=== PATIENT | female | born 1985 | race Caucasian/White ===

== ENCOUNTER 2017-09-04 00:26 | Emergency (ER) | payer MEDICAID, SELFPAY ==
[2017-09-04 00:27] VITALS: BP 135/101; PULSE 83; RESP 16; TEMP 36.7; O2SAT 100; BMI 26.1
--- NOTE | 2017-09-04 00:58 | ED.DCSUM_ITS ---
- ER Visit Summary Date of Service: 09/04/17 Chief Complaint: Rash and sore throat History of Present Illness: The patient is a 32 F 2 day history rash started on abdomen has spread diffusely in spots. Sore throat yesterday. No changes in soaps or detergents. She does have a new puppy. No plant exposure. States chills and sweats. Mild nonproductive cough. Pain worse with swallowing. Has not taken any medications. Also states has a goiter that is being monitored. Physical Examination: General: Alert and oriented ?3, no acute distress HEENT: Normocephalic, atraumatic. Posterior pharyngeal erythema. No exudates. 1+ symmetric tonsils. Uvula midline. No trismus. Moist mucosa membranes Neck: supple, nontender. Small mass anterior neck midline. Nontender. Cardiovascular: Regular rate and rhythm, no murmurs Respiratory: Normal breath sounds, symmetric, no distress Abdomen: Soft, nontender, nondistended Extremities: Nontender, no edema, pulses intact ?4 Neuro: no focal neurological deficits. Skin: Diffuse scattered papules abdomen and bilateral arms. Patches in the groin region. There is a patch in the left palm region. No patches or lesions on the foot. Test Results: Rapid strep positive Emergency Department Course and Treatment: Patient nontoxic, vital signs stable. Rapid strep was positive. Patient was diffuse scattered papular rash. Rash started first prior to throat symptoms. Discussed could be viral syndrome with coxsackie's with the palm rash. However patient also strep positive currently. She denies any urinary symptoms. She will be treated Bicillin and Decadron. She will use Benadryl as needed. Discussed monitoring for urine symptoms for decreased output or hematuria or developing fevers to call her PCP or return for reevaluation. Patient understands and agrees with plan. Treatment Plan: [] Disposition: Discharge Impression: 1. Strep pharyngitis 2. Dermatitis This note was generated with [employer] dictation software. It may contain incorrect words, spelling, and punctuation that were not noted in review of the chart prior to signing ED Disposition - Plan for ED Patient: Disposition: Home or Assisted Living Chief Complaint: Sore Throat Diagnosis: Strep pharyngitis, Dermatitis Instructions: ED Strep Pharyngitis Conf, ED Dermatitis Non Specific Rash Referrals: Servando Fishman DO [Primary Care Provider] - 3-5 Days if not improving
[2017-09-04] MEDS: Ibuprofen 600 MG Tablet PO (01:10)
[2017-09-04] MEDS: Penicillin G Benzathine 1.2 MU/2 ML Syringe IM (02:07)
[2017-09-04 02:27] VITALS: BP 140/97; PULSE 85; RESP 17; O2SAT 98
[2017-09-04] MEDS: DiphenhydrAMINE 25 MG Capsule 50 MG PO (02:27)
--- NOTE | 2017-09-04 02:32 | ED.RN ---
PT GIVEN WRITTEN AND VERBAL DISCHARGE INSTRUCTIONS, AND BENADRYL HOME PACK. PT VERBALIZES UNDERSTANDING. PT INJECTION SITE CLEAR. DENIES ANY FURTHER QUESTIONS. AMBULATORY HOME BY SELF.
== END 2017-09-04 02:34 | disposition home or self-care (01) ==
PROVIDERS: Emergency Provider Emergency Medicine; Family Provider Student in an Organized Health Care Education/Training Program; PCP Student in an Organized Health Care Education/Training Program
DX: L30.9 Dermatitis, unspecified (principal); J02.0 Streptococcal pharyngitis; F32.9 Major depressive disorder, single episode, unspecified; F41.9 Anxiety disorder, unspecified; Z79.899 Other long term (current) drug therapy; Z72.0 Tobacco use
CPT/HCPCS: 87880; 96372; 99283

== ENCOUNTER → 2023-12-11 | Outpatient (CLI) | payer MEDICAID, SELFPAY ==
[2023-12-11 18:35] LABS: HIV - WCH Non-Reactive (Nonreactive); Hepatitis B Surface Antibody Reactive; Hepatitis B Surface Antigen Non-Reactive (Nonreactive); Hepatitis C Antibody Non-Reactive (Nonreactive); Syphilis Antibodies Non-reactive
[2023-12-13 08:10] LABS: Hepatitis B Core Ab Total Negative (Negative)
[2023-12-16 16:10] LABS: HPV APTIMA, High Risk Negative (Negative)
[2023-12-16 17:11] LABS: HPV Reflexed? YES, CHARGE PATIENT
== END | disposition home or self-care (01) ==
LOC: LABSPEC 15:58
PROVIDERS: PCP Student in an Organized Health Care Education/Training Program; Visit Provider Nurse Practitioner Family
DX: Z01.419 Encounter for gynecological examination (general) (routine) without abnormal findings (principal); Z11.3 Encounter for screening for infections with a predominantly sexual mode of transmission
CPT/HCPCS: 86703; 86704; 86706; 86780; 86803; 87340; 87624; 88175; G0145

== ENCOUNTER → 2023-12-23 | Outpatient (CLI) | payer MEDICAID, SELFPAY ==
--- NOTE | 2023-12-23 13:57 | BI_ITS ---
MAMMOGRAPHY - BILATERAL SCREENING REASON FOR EXAM: Female, 38 years old. Routine annual screening examination. PERTINENT HISTORY: Aunt with breast cancer. TECHNIQUE: Digital bilateral breast dorothy (3D mammographic acquisition) in the CC and MLO projections. 2-D mediolateral oblique (MLO) and craniocaudad (CC) views of both breasts were obtained. CAD: Full Field Digital Mammography with Computer Added Detection was performed. COMPARISON: None. Baseline examination. FINDINGS: Breast Composition: The breasts are almost entirely fatty. There are no dominant masses or suspicious calcifications. No other significant abnormalities are identified. BI/SCRN MAMM (CAD)W/DOROTHY BILAT IMPRESSION: Negative screening mammogram. Yearly followup mammogram recommended. (A) ASSESSMENT CATEGORY: BIRADS Category 1: Negative. A letter regarding these results will be sent to the patient by the facility within 30 days. Approximately 10% of breast cancers are not detected by mammography. A normal mammogram should not delay biopsy of a clinically suspicious abnormality. [id number] Electronically Signed: Lito Castaneda MD at 14:44 EDT ,
== END | disposition home or self-care (01) ==
PROVIDERS: PCP Student in an Organized Health Care Education/Training Program; Referring Provider Nurse Practitioner Family; Visit Provider Nurse Practitioner Family
DX: Z12.31 Encounter for screening mammogram for malignant neoplasm of breast (principal)
CPT/HCPCS: 77063; 77067

== ENCOUNTER 2023-12-25 15:38 | Emergency (ER) | payer MEDICAID, SELFPAY ==
[2023-12-25 15:45] VITALS: BP 117/77; PULSE 89; RESP 16; TEMP 36.1; O2SAT 99
--- NOTE | 2023-12-25 15:45 | EKG12_ITS ---
Test Reason : SOB Blood Pressure : / mmHG Vent. Rate : 092 BPM Atrial Rate : 092 BPM P-R Int : 152 ms QRS Dur : 066 ms QT Int : 354 ms P-R-T Axes : 037 020 069 degrees QTc Int : 437 ms Normal sinus rhythm Normal ECG Confirmed by SHON PROCTOR, OVIDIO ([id number]), rewrite editor LEE LATHAM ([id number]) on 12/31/2023 10:42:44 A M Referred By: CECELIA Confirmed By:OVIDIO MENENDEZ MD
--- NOTE | 2023-12-25 15:45 | RAD_ITS ---
STUDY: X-RAY CHEST REASON FOR EXAM: Female, 38 years old. chest pain TECHNIQUE: Single AP portable view of the chest. COMPARISON: 08/20/2012 FINDINGS: The lungs are clear and expanded. There is no demonstrated pleural abnormality. Normal size heart. Normal mediastinum and knvg. Normal visualized pulmonary arteries. Normal visualized aortic arch and descending thoracic aorta. Normal visualized thoracic spine. Normal visualized ribs, clavicles, and shoulders. There is no demonstrated abnormality of the visualized soft tissue structures of the upper abdomen. RAD/Chest 1 View (Portable) IMPRESSION: Normal x-ray examination of the chest. Electronically Signed: Jesus Davis MD at 16:13 EDT ,
[2023-12-25 15:48] VITALS: BMI 32.0
[2023-12-25 15:57] LABS: Absolute Lymphocyte Count 0.91 X10^3/uL (0.83-4.51); Absolute Neutrophil Count 9.5 X10^3/uL (2.0-7.7); Basophil# 0.05 X10^3/uL; Basophil% 0.5 % (0-1); Eosinophil# 0.01 X10^3/uL; Eosinophils% 0.1 % (0-5); Hematocrit 40.2 % (37-47); Hemoglobin 13.3 g/dL (12.0-15.0); Lymphocyte # 0.91 X10^3/ul (0.83-4.51); Lymphocyte % 8.3 % (19-41); Mean Corp Hgb Conc 33.1 g/dL (32-36); Mean Corpuscular Hgb 27.4 pg (27.0-32.0); Mean Corpuscular Volume 82.9 fL (81-99); Mean Platelet Vol. 9.2 fl (6.2-12.0); Monocyte# 0.31 X10^3/uL; Monocyte% 2.8 % (0-10); NRBC Flagged by Analyzer 0 % (0-5); Neutrophil # 9.53 X10^3/uL (2.7-7.7); Neutrophil % 87.4 % (47-70); Platelet Count 379 K/mm3 (150-450); RBC Distribution Width CV 12.4 % (11.6-14.6); RBC Distribution Width SD 37.3 fl (35.1-43.9); Red Blood Count 4.85 M/mm3 (4.2-5.4); White Blood Count 10.9 K/mm3 (4.4-11.0)
[2023-12-25 16:17] LABS: Anion Gap 5 (5-15); BUN 22 mg/dL (7-18); BUN/Creat Ratio 25.3 RATIO (10-20); Calcium,Total 9.2 mg/dL (8.5-10.1); Chloride 105 mmol/L (98-107); Creatinine, Serum 0.87 mg/dL (0.55-1.02); EST Glomerular Filtration Rate 77 mL/min (>60); Est Glom Filt Rate - Afr Amer 93 mL/min (>60); Glucose 121 mg/dL (74-106); Potassium 3.8 mmol/L (3.5-5.1); Sodium Level 137 mmol/L (136-145); Troponin-I HS (w/2H Reflex) < 3 pg/mL (3.0-54.0)
[2023-12-25 16:27] LABS: International Normalized Ratio 1.1
[2023-12-25 16:41] VITALS: BP 128/82; PULSE 88; RESP 10; TEMP 36.8; O2SAT 99
[2023-12-25 17:00] VITALS: BP 136/83; PULSE 88; RESP 13; O2SAT 98
--- NOTE | 2023-12-25 17:30 | EX.ED.DYSGE1 ---
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 According the patient she states that she was sitting in group therapy today when she developed chest pain. States that last night she had chest pain on the left side that resolved on its own and then today she noticed this was on the right side rated this a approximately 7 out of 10. She states that EMS was called to have her brought here for evaluation management and noted that her blood pressure was elevated. She states that she was given nitroglycerin and her pain completely resolved with this medication. Patient states that she does have a history of a leaking tricuspid valve and has not followed up on this recently. 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 Depression Anxiety Substance abuse Home Medications ?Medication ?Instructions ?Recorded ?Last Taken ?Type cholecalciferol (vitamin D3) 25 1,000 unit PO DAILY 03/27/14 Unknown History mcg (1,000 unit) capsule (Vitamin D3) duloxetine 60 mg capsule,delayed 60 mg PO DAILY 03/27/14 Unknown History release multivitamin with folic acid 400 1 tab PO DAILY 03/27/14 Unknown History mcg tablet (Thera) tramadol 50 mg tablet 50 mg PO Q6H PRN PRN Pain 09/17/15 Unknown History lorazepam 0.5 mg tablet 0.5 mg PO TID PRN PRN Anxiety 12/05/16 Unknown History Allergy/AdvReac Type Severity Reaction Status Date / Time No Known Allergies Allergy Verified 12/25/23 15:45 Surgical History History of appendectomy History of cholecystectomy Social History Smoking Status: Current every day smoker tobacco type: cigarettes ROS ROS ED ROS Narrative Constitutional: Complained of some lightheadedness denies any headaches, fevers, chills ENT: Denies changes with double vision blurry vision Cardiovascular: Complains of chest pain as noted above denies any palpitations Respiratory: Denies cough wheezing shortness of breath Abdominal: Denies any abdominal pain nausea vomiting diarrhea Genitourinary: Denies any painful ideation, hematuria, polyuria Neurological: Denies any numbness weakness, tingling Skin: Denies any rashes or lesions EXAM Physical Exam Narrative Exam Narrative: General: Patient was lying in bed rest comfortably did not appear to be in acute distress Head: Atraumatic, normocephalic EENT: Pupils equal round react light bilaterally, extraocular muscle intact bladder, no conjunctival injection noted Neck: Soft, supple, trachea midline Respiratory: Clear to auscultation bilaterally no rales rhonchi wheeze noted Cardiovascular: Regular rate and rhythm no murmurs gallops rubs noted Abdominal: Soft, supple, generally nontender to palpation Extremities: Radial pulses +2/4 bilateral extremities, no pedal edema on exam Neurological: Patient following commands knew that she was at [facility] years 2023 Skin: Warm, dry, intact Const Vital Signs: 12/25/23 15:45 12/25/23 16:40 12/25/23 16:41 Temperature 96.9 F L 98.3 F Temperature Source Temporal Oral Pulse Rate 89 88 Respiratory Rate 16 10 L Respiratory Effort Blood Pressure 117/77 128/82 H Blood Pressure Mean 90 97 Pulse Ox 99 99 Oxygen Delivery Method Room Air Room Air Room Air 12/25/23 16:43 12/25/23 17:00 12/25/23 18:00 Temperature Temperature Source Pulse Rate 88 77 Respiratory Rate 13 12 Respiratory Effort Normal Non-Labored Blood Pressure 136/83 H 131/85 H Blood Pressure Mean 100 100 Pulse Ox 98 99 Oxygen Delivery Method Room Air Room Air MDM MDM MDM Narrative Medical decision making narrative: Patient is a 38-year-old female who presented to the emerged [facility] with chief complaint of chest pain. Patient blood work performed here on the differential diagnose includes but limited to ACS, GERD, pneumonia, upper respiratory infection-like provide etiology. Once workup is obtained reviewed she will be reevaluated. Patient received nitroglycerin prehospital that improved her pain she is asymptomatic at this point time. Patient CBC was reviewed and showed no evidence of leukocytosis white blood cell normal at 10.9, hemoglobin stable 13.3, platelet count normal at 379. Patient sodium normal 137, potassium normal 3.8, creatinine normal at 0.87. Patient troponin was noted be normal at less than 3 and delta troponin obtained normal less than 3 as well. Patient's chest x-ray was reviewed and showed normal x-ray examination of the chest. Patient's EKG was reviewed and showed normal sinus rhythm with rate of 66 bpm. Patient's heart score is noted to be 1 indicating a low score. Discussed results with the patient and at this point time she would like to go back to her rehab facility feels better than when she arrived. Patient was encouraged to follow-up with her primary care physician in outpatient setting. She was encouraged to return with worsening symptoms or any other concerns. Patient was discharged home in stable condition Lab Data Labs: Laboratory Results - last 24 hr 12/25/23 12/25/23 15:34 18:05 WBC 10.9 RBC 4.85 Hgb 13.3 Hct 40.2 MCV 82.9 MCH 27.4 MCHC 33.1 RDW Std Deviation 37.3 RDW Coeff of Shai 12.4 Plt Count 379 MPV 9.2 Immature Gran % (Auto) 0.900 Neut % (Auto) 87.4 H Lymph % (Auto) 8.3 L Edwards % (Auto) 2.8 Eos % (Auto) 0.1 Baso % (Auto) 0.5 Absolute Neuts (auto) 9.5 H Absolute Lymphs (auto) 0.91 Nucleated RBC % 0 PT 14.0 INR 1.1 Sodium 137 Potassium 3.8 Chloride 105 Carbon Dioxide 27.0 Anion Gap 5 BUN 22 H Creatinine 0.87 Est GFR (MDRD) Af Amer 93 Est GFR (MDRD) Non-Af 77 BUN/Creatinine Ratio 25.3 H Glucose 121 H Calcium 9.2 Troponin I High Sens < 3 L < 3 L Radiography Diagnostic Testing: Clinical Impression(s) from Imaging Studies Chest X-Ray 12/25/23 15:45 IMPRESSION: Normal x-ray examination of the chest. Electronically Signed: Jesus Davis MD at 16:13 EDT , Discharge Plan Triage Chief Complaint: Chest Pain ED Provider: Pb Osorio Dx/Rx/DC Orders Clinical Impression: Chest pain Prescriptions: No Action cholecalciferol (vitamin D3) [Vitamin D3] 1,000 UNIT capsule 1,000 unit PO DAILY duloxetine 60 MG capsule 60 mg PO DAILY multivitamin with folic acid [Thera] 1 TABLET tablet 1 tab PO DAILY tramadol 50 MG tablet 50 mg PO Q6H PRN PRN (Reason: Pain) lorazepam 0.5 MG tablet 0.5 mg PO TID PRN PRN (Reason: Anxiety) Primary Care Provider: Servando Fishman Referrals: Servando Fishman DO [Primary Care Provider] - Activity Restrictions/Additional Instructions: Follow with your primary care physician in 2 to 3 days. Return with worsening symptoms or other concerns. Print Language: Mongolian Disposition Disposition: Home, Self Care
[2023-12-25 17:50] LABS: Reflex Troponin-HS? (from REC) Y
[2023-12-25 18:00] VITALS: BP 131/85; PULSE 77; RESP 12; O2SAT 99
[2023-12-25 18:27] LABS: Troponin-I HS < 3 pg/mL (3.0-54.0)
[2023-12-25 19:00] VITALS: BP 132/88; PULSE 85; RESP 17; TEMP 36.8; O2SAT 97
== END 2023-12-25 19:16 | disposition home or self-care (01) ==
PROVIDERS: Emergency Provider Emergency Medicine; PCP Student in an Organized Health Care Education/Training Program; Visit Provider Emergency Medicine
DX: R07.9 Chest pain, unspecified (principal); F17.210 Nicotine dependence, cigarettes, uncomplicated
CPT/HCPCS: 71045; 80048; 84484; 85025; 85610; 93005; 99284